=== PATIENT | male | born 1970 | race Caucasian/White ===

== ENCOUNTER 2020-08-24 10:11 | Emergency (ER) | payer MEDICARE ==
[~2020-08-24] VITALS: Ht 170 cm; Wt 77.0 kg
--- NOTE | 2020-08-24 12:01 | ED Cough/URI ---
General Chief Complaint: Cough/Cold/Flu Symptoms Stated Complaint: SWOLLEN LYMPH NODES/COUGH Source: patient Exam Limitations: no limitations History of Present Illness Date Seen by Provider: August 24, 2020 Time Seen by Provider: 12:01 Initial Comments This is a well-appearing 50-year-old male who presents to the ER with complaints of swollen lymph nodes on the left side of his neck and a dry hacking cough X 2 days. Reports generalized fatigue, no fevers no chills. No chest pain, shortness of breath, nausea/vomiting/diarrhea, abdominal pain. States he had Covid in February 2020 and has since had both of his vaccines with the last one around August 12. 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 Allergies and Home Medications Home Medications Doxycycline Hyclate 100 Mg Capsule, 100 MG PO BID Prescribed by: LAURA MAYFIELD on 08/24/20 8101 Patient Home Medication List Home Medication List Reviewed: Yes Review of Systems Review of Systems Constitutional: see HPI EENTM: throat pain; No ear discharge, No hoarseness, No nose congestion, No throat swelling Respiratory: see HPI Cardiovascular: no symptoms reported Gastrointestinal: no symptoms reported Genitourinary: no symptoms reported Musculoskeletal: no symptoms reported Skin: no symptoms reported Psychiatric/Neurological: No Symptoms Reported Hematologic/Lymphatic: Swollen Glands Immunological/Allergic: no symptoms reported Physical Exam Vital Signs - First Documented Capillary Refill : Height: '" Weight: lbs. oz. kg; BMI Method: General Appearance: WD/WN, no apparent distress Eyes: Bilateral Eye Normal Inspection, Bilateral Eye EOMI HEENT: PERRL/EOMI, normal ENT inspection, pharyngeal erythema Neck: full range of motion, normal inspection, lymphadenopathy (L) Respiratory: lungs clear, normal breath sounds, no respiratory distress, no accessory muscle use Cardiovascular: regular rate, rhythm, no murmur Gastrointestinal: normal bowel sounds, non tender, soft Neurologic/Psychiatric: no motor/sensory deficits, alert, normal mood/affect, oriented x 3 Skin: normal color, warm/dry Lymphatic: other (left anterior cervical chain ) Progress/Results/Core Measures Suspected Sepsis SIRS Temperature: Pulse: Respiratory Rate: Laboratory Tests 08/24/20 12:20: White Blood Count 8.2 Blood Pressure / Mean: Laboratory Tests 08/24/20 12:20: Creatinine 0.84, Platelet Count 235, Total Bilirubin 0.3 Results/Orders Lab Results Laboratory Tests Test 08/24/20 11:55 08/24/20 12:20 Range/Units SARS-CoV-2 RNA (RT-PCR) Not Detected Not Detecte White Blood Count 8.2 4.3-11.0 10^3/uL Red Blood Count 4.57 4.30-5.52 10^6/uL Hemoglobin 14.6 13.3-17.7 g/dL Hematocrit 44 40-54 % Mean Corpuscular Volume 96 80-99 fL Mean Corpuscular Hemoglobin 32 25-34 pg Mean Corpuscular Hemoglobin Concent 33 32-36 g/dL Red Cell Distribution Width 12.6 10.0-14.5 % Platelet Count 235 130-400 10^3/uL Mean Platelet Volume 10.9 9.0-12.2 fL Immature Granulocyte % (Auto) 0 % Neutrophils (%) (Auto) 72 42-75 % Lymphocytes (%) (Auto) 18 12-44 % Monocytes (%) (Auto) 10 0-12 % Eosinophils (%) (Auto) 0 0-10 % Basophils (%) (Auto) 0 0-10 % Neutrophils # (Auto) 5.9 1.8-7.8 10^3/uL Lymphocytes # (Auto) 1.4 1.0-4.0 10^3/uL Monocytes # (Auto) 0.8 0.0-1.0 10^3/uL Eosinophils # (Auto) 0.0 0.0-0.3 10^3/uL Basophils # (Auto) 0.0 0.0-0.1 10^3/uL Immature Granulocyte # (Auto) 0.0 0.0-0.1 10^3/uL Sodium Level 143 135-145 MMOL/L Potassium Level 4.5 3.6-5.0 MMOL/L Chloride Level 106 98-107 MMOL/L Carbon Dioxide Level 25 21-32 MMOL/L Anion Gap 12 5-14 MMOL/L Blood Urea Nitrogen 11 7-18 MG/DL Creatinine 0.84 0.60-1.30 MG/DL Estimat Glomerular Filtration Rate > 60 BUN/Creatinine Ratio 13 Glucose Level 99 70-105 MG/DL Calcium Level 9.1 8.5-10.1 MG/DL Corrected Calcium 9.1 8.5-10.1 MG/DL Total Bilirubin 0.3 0.1-1.0 MG/DL Aspartate Amino Transf (AST/SGOT) 19 5-34 U/L Alanine Aminotransferase (ALT/SGPT) 19 0-55 U/L Alkaline Phosphatase 56 40-136 U/L Total Protein 6.7 6.4-8.2 GM/DL Albumin 4.0 3.2-4.5 GM/DL Micro Results Microbiology 08/24/20 Influenza Types A,B Antigen ([facility]) - Final, Complete My Orders Orders - LAURA MAYFIELD APRN Mycoplasma Antibodies (08/24/20 12:03) Cbc With Automated Diff (08/24/20 12:24) Comprehensive Metabolic Panel (08/24/20 12:24) Vital Signs/I&O 08/24/20 08/24/20 11:40 11:40 Temp 36.3 Pulse 83 Resp 18 B/P (MAP) 134/103 (113) Pulse Ox 97 O2 Delivery Room Air Room Air Capillary Refill : Progress Note : Progress Note Patient examined and in no acute distress. Breathing easy, non-labored. Orders placed for basic labs, influenza, Covid, chest x-ray. Will add Myco due to dry hacking cough. Labs reviewed and unremarkable, chest x-ray negative for any acute findings. Influenza and Covid negative as well. Myco pending. Due to history of COPD we will go ahead and place on doxycycline for a week to see if this improves his symptoms. He is to follow-up with his primary care provider if symptoms persist. ECG Initial ECG Impression Date: August 24, 2020 Initial ECG Impression Time: 11:49 Initial ECG Rate: 77 Initial ECG Rhythm: Normal Sinus Initial ECG Intervals: Normal Initial ECG Impression: Normal Initial ECG Comparisson: No Previous ECG Available Diagnostic Imaging Diagonstic Imaging: Xray Plain Films/CT/US/NM/MRI: chest Comments NAME: PANKAJ PEDRAZA [facility] REC#: [id number] PT STATUS: REG ER : 1970 PHYSICIAN: SAM WELLS MD ADMIT DATE: 08/24/20/ER Draft Date of Exam:08/24/20 CHEST 1 VIEW, AP/PA ONLY Clinical indications: Patient with cough. Exam: Portable chest x-ray upright view. Comparisons: None. Findings: Lungs/pleura: Lungs are clear. There is no pneumothorax. There is no pleural effusion. Mediastinum: Unremarkable. Pulmonary vasculature: Unremarkable. Heart: Unremarkable. Bones/extrathoracic soft tissue: Unremarkable. Impression: There is no radiographic evidence of acute cardiopulmonary process. Dictated on workstation # [id number] Dict: 08/24/20 1233 Trans: 08/24/20 1238 CV [id number] Interpreted by: ELISABETH SALEH MD Electronically signed by: Reviewed: Reviewed by Me Departure Impression Primary Impression: Bronchitis Additional Impression: COPD (chronic obstructive pulmonary disease) Disposition: HOME, SELF-CARE Condition: Stable Departure-Patient Inst. Decision time for Depature: 12:50 Referrals: MERCEDES REES DO (PCP/Family) Primary Care Physician Patient Instructions: Bacterial Upper Respiratory Infection, Adult (DC) Add. Discharge Instructions: Plan: 1. Take Doxycycline 100mg by mouth daily for seven days. 2. Drink plenty of fluids. May take over the counter cough syrup as directed. Use Coricidin HBP as directed. 3. Follow up with your primary care provider if symptoms persist. 4. Return for any new or worsening symptoms. All discharge instructions reviewed with patient and/or family. Voiced understanding. Scripts Doxycycline Hyclate (Doxycycline Hyclate) 100 Mg Capsule 100 MG PO BID for 7 Days, #14 CAP 0 Refills Prov: LAURA MAYFIELD [employer] 08/24/20 LAURA MAYFIELD [employer]ER August 24, 2020 12:01
[2020-08-24 12:30] LABS: BASOPHILS % (AUTO) 0 % (0-10); EOSINOPHILS % (AUTO) 0 % (0-10); HEMATOCRIT 44 % (40-54); HEMOGLOBIN 14.6 g/dL (13.3-17.7); LYMPHOCYTES # (AUTO) 1.4 10^3/uL (1.0-4.0); LYMPHOCYTES % (AUTO) 18 % (12-44); MEAN CORPUSCULAR HEMOGLOBIN 32 pg (25-34); MEAN CORPUSCULAR HGB CONC 33 g/dL (32-36); MEAN CORPUSCULAR VOLUME 96 fL (80-99); MEAN PLATELET VOLUME 10.9 fL (9.0-12.2); MONOCYTES # (AUTO) 0.8 10^3/uL (0.0-1.0); MONOCYTES % (AUTO) 10 % (0-12); NEUTROPHILS # (AUTO) 5.9 10^3/uL (1.8-7.8); NEUTROPHILS % (AUTO) 72 % (42-75); PLATELET COUNT 235 10^3/uL (130-400); WHITE BLOOD COUNT 8.2 10^3/uL (4.3-11.0)
--- NOTE | 2020-08-24 12:39 | Diagnostic Imaging Report ---
Clinical indications: Patient with cough. Exam: Portable chest x-ray upright view. Comparisons: None. Findings: Lungs/pleura: Lungs are clear. There is no pneumothorax. There is no pleural effusion. Mediastinum: Unremarkable. Pulmonary vasculature: Unremarkable. Heart: Unremarkable. Bones/extrathoracic soft tissue: Unremarkable. Impression: There is no radiographic evidence of acute cardiopulmonary process. Dictated by: Dictated on workstation # [id number]
[2020-08-24 12:44] LABS: CHLORIDE 106 MMOL/L (98-107); POTASSIUM 4.5 MMOL/L (3.6-5.0)
[2020-08-24 12:45] LABS: SODIUM 143 MMOL/L (135-145)
[2020-08-24 12:46] LABS: CALCIUM 9.1 MG/DL (8.5-10.1)
[2020-08-24 12:47] LABS: GLUCOSE 99 MG/DL (70-105); TOTAL PROTEIN 6.7 GM/DL (6.4-8.2)
[2020-08-24 12:48] LABS: CARBON DIOXIDE 25 MMOL/L (21-32)
[2020-08-24 12:49] LABS: BILIRUBIN,TOTAL 0.3 MG/DL (0.1-1.0)
[2020-08-24 12:50] LABS: ALKALINE PHOSPHATASE 56 U/L (40-136)
[2020-08-24 12:51] LABS: CREATININE SERUM 0.84 MG/DL (0.60-1.30); GFR ESTIMATED > 60
[2020-08-24 12:52] LABS: BUN/CREATININE RATIO 13
[2020-08-24 12:53] LABS: ALANINE AMINOTRANSFERASE 19 U/L (0-55)
[2020-08-24] MEDS ORDERED: DOXY100C2 PO (12:53)
[2020-08-24 13:02] VITALS: BP 141/103
== END 2020-08-24 13:02 | disposition home or self-care (01) ==
LOC: ER 10:13
DX: J40 Bronchitis, not specified as acute or chronic (principal); J44.9 Chronic obstructive pulmonary disease, unspecified; Z20.822 Contact with and (suspected) exposure to COVID-19
CPT/HCPCS: 71045; 80053; 85025; 86738; 87804; 93005; 99284; U0002; 36415; 87635